=== PATIENT | female | born 1995 | race Two or more races ===

== ENCOUNTER 2024-06-08 09:26 | Outpatient (CLI) | payer MEDICAID, SELFPAY ==
[2024-06-08 09:30] VITALS: BP 136/84; PULSE 81; RESP 16; RESP 99; TEMP 36.8; BMI 36.3
[2024-06-08 09:37] VITALS: BP 136/84; PULSE 81
[2024-06-08 09:53] VITALS: BP 128/79; PULSE 99
== END 2024-06-08 10:14 | disposition home or self-care (01) ==
LOC: S4S1 09:29 → S4SX 09:30
PROVIDERS: PCP Family Medicine; Referring Provider Student in an Organized Health Care Education/Training Program; Visit Provider Student in an Organized Health Care Education/Training Program
DX: O36.8130 Decreased fetal movements, third trimester, not applicable or unspecified (principal); Z3A.37 37 weeks gestation of pregnancy
CPT/HCPCS: 59025

== ENCOUNTER 2024-09-21 05:52 | Emergency (ER) | payer MEDICAID, SELFPAY ==
[2024-09-21 05:53] VITALS: BP 119/73; PULSE 117; RESP 20; TEMP 37.4; O2SAT 93; BMI 29.2
--- NOTE | 2024-09-21 06:18 | XR_ITS ---
Examination: PA lateral chest 2 views TECHNIQUE: Upright PA and lateral chest 2 views Date and time: September 21, 2024, 0633 hours INDICATIONS: Cough and shortness of breath beginning one week ago. FINDINGS: Pneumonia at the right base and right middle lobe Normal heart size The osseous structures are intact IMPRESSION: Pneumonia right base and right middle lobe
--- NOTE | 2024-09-21 06:20 | PD.EDURI ---
Upper Respiratory Inf. RME/HPI General Chief Complaint: Flu Like Symptoms Stated Complaint: FLU LIKE SYMPTOMS Time Seen by Provider: 09/21/24 06:14 Source: patient Arrival date/time: 09/21/24 05:52 28-year-old female with no known medical history presents to the emergency room with a chief complaint of coughing, congestion, intermittent fevers x 1 week Mode of arrival: ambulatory Limitations: no limitations Related Data Home Medications ?Medication ?Instructions ?Recorded ?Confirmed vitamin-ferrous sulfate 1 tab PO QDAY 06/08/24 06/08/24 27 mg iron-folic acid 0.8 mg tablet Previous Rx's ?Medication ?Instructions ?Recorded albuterol sulfate 90 mcg/actuation 2 puff inhalation Q6H PRN 09/21/24 aerosol inhaler (Ventolin HFA) shortness of breath or wheezing #6.7 grams amoxicillin 875 mg-potassium 1 tab PO BID 7 days #14 tabs 09/21/24 clavulanate 125 mg tablet benzonatate 100 mg capsule 100 mg PO BID PRN cough #14 caps 09/21/24 Allergies Allergy/AdvReac Type Severity Reaction Status Date / Time No Known Allergies Allergy Verified 09/21/24 05:54 Review of Systems Review of Systems Systems Reviewed: All systems reviewed, normal except as documented Constitutional Constitutional: Reports system reviewed and no additional complaints, except as documented, Denies fatigue, Denies fever(s), Denies headache(s) and Denies weakness Eyes Eyes: Reports system reviewed and no additional complaints, except as documented, Denies blurry vision and Denies change in vision ENT Ears, Nose, Mouth, and Throat: Reports system reviewed and no additional complaints, except as documented, Denies otalgia, Denies headache(s), Denies nasal congestion, Denies throat swelling and Denies vertigo Cardiovascular Cardiovascular: Reports system reviewed and no additional complaints, except as documented, Denies chest pain, Denies dyspnea and Denies dyspnea on exertion Respiratory Respiratory: Reports system reviewed and no additional complaints, except as documented, Reports chest congestion, Reports cough, Denies dyspnea, Denies dyspnea on exertion, Reports pain with cough and Reports wheezing Gastrointestinal Gastrointestinal: Reports system reviewed and no additional complaints, except as documented, Denies abdominal pain, Denies cramping, Denies nausea and Denies vomiting Genitourinary Genitourinary: Reports system reviewed and no additional complaints, except as documented Musculoskeletal Musculoskeletal: Reports system reviewed and no additional complaints, except as documented and Denies back pain Integumentary/Breasts Skin/Breast: Reports system reviewed and no additional complaints, except as documented and Denies wounds Neurologic Neurologic: Reports system reviewed and no additional complaints, except as documented, Denies confusion, Denies headache(s), Denies lack of coordination, Denies vertigo and Denies weakness Psychiatric Psychiatric: Reports system reviewed and no additional complaints, except as documented, Denies anxiety, Denies confusion, Denies depression, Denies paranoia, Denies suicidal ideation and Denies tactile hallucinations Endocrine Endocrine: Reports system reviewed and no additional complaints, except as documented and Denies fatigue Hematologic/Lymphatic Hematologic/Lymphatic: Reports system reviewed and no additional complaints, except as documented and Denies lymphadenopathy Allergic/Immunologic Allergic/Immunologic: Reports system reviewed and no additional complaints, except as documented, Denies throat swelling, Denies urticaria and Reports wheezing Past Medical History Social History SMOKING STATUS: Never smoker ED Exam General Limitations: Present no limitations General appearance: Present alert and in no apparent distress Head Head exam: Present atraumatic Eye Eye exam: Present normal appearance, PERRL and EOMI ENT ENT exam: Present normal exam, normal oropharynx and mucous membranes moist Neck Neck exam: Present normal inspection, full ROM and trachea midline Chest Chest inspection: Present normal inspection and symmetric chest wall rise Respiratory Respiratory exam: Present normal lung sounds bilaterally and wheezes; Absent respiratory distress, stridor, accessory muscle use or prolonged expiratory phase Expanded Respiratory Exam Location: Left: wheezes, Right: wheezes, Upper: wheezes and Lower: wheezes Cardiovascular Cardiovascular exam: Present regular rate, normal rhythm and normal heart sounds Abdominal Exam Abdominal exam: Present soft and normal bowel sounds Extremities Exam Extremities exam: Present normal inspection and full ROM Back Exam Back exam: Present normal inspection and full ROM Neurological Exam Neurological exam: Present alert, oriented X3 and CN II-XII intact Psychiatric Psychiatric exam: Present normal affect and normal mood Skin Skin exam: Present warm, dry, intact and normal color Course Quality Measures none Orders Category Date Time Status Bedside COVID-19 Antigen Test NOW Care 09/21/24 06:18 Completed Bedside Influenza A&B Antigen Test NOW Care 09/21/24 06:18 Completed XR chest 2V Stat Exams 09/21/24 06:18 Completed Strep A Rapid Stat Lab 09/21/24 06:21 Completed Albuterol/Ipratr Rt Debbie [Duoneb Rt Debbie] Med 09/21/24 06:18 Discontinued 3 ml INH X1 ONE Dexamethasone Inj [Decadron Inj] Med 09/21/24 06:18 Discontinued 10 mg PO X1 ONE Vital Signs Vital signs: Vital Signs Temperature 99.3 F 09/21/24 05:53 Pulse Rate 117 H 09/21/24 05:53 Respiratory Rate 20 09/21/24 05:53 Blood Pressure 119/73 09/21/24 05:53 Pulse Oximetry (%) 93 L 09/21/24 05:53 Oxygen Delivery Method Room Air 09/21/24 05:53 O2 saturation 93% Upper Respiratory Infection MDM Narrative MDM Narrative:: 28-year-old female with no known medical history presents to the emergency room with a chief complaint of coughing, congestion, intermittent fevers x 1 week Patient is tachycardic and O2 saturation is 93 on room air Physical examination shows wheezing to the bilateral upper and lower lobes. The patient has a lot of coughing. A breathing treatment was completed and steroids were given with significant improvement of her symptoms. Chest x-ray Patient data External records reviewed:: [facility] previous records Clinical information provided by:: patient Social determinants that could affect healthcare access:: none Patient has the following chronic illnesses:: No chronic illness How is presenting disease/condition affected by chronic disease/condition?: no chronic disease Evaluation data The following diagnostics were reviewed and interpreted by me:: lab results and radiology exam(s) Lab and/or radiology exams considered but not ordered:: Labs radiology exams considered and ordered Interpretation Summary: Chest [id number]: Pneumonia at the right base and right middle lobe Normal heart size The osseous structures are intact IMPRESSION: Pneumonia right base and right middle lobe Medications / Prescriptions Medications or Prescriptions considered but not ordered:: Medication given Medication administrations:: Medication Administration History Discontinued Medications Albuterol/Ipratropium (Albuterol/Ipratropium (Duoneb) Rt Debbie 3 Ml Nebu) 3 ml INH X1 ONE Stop: 09/21/24 06:19 Last Admin: 09/21/24 06:47 Dose: 3 ml Documented By: RODOLFO Dexamethasone Sodium Phosphate (Dexamethasone Sod Phos Inj 10 Mg/Ml Vial) 10 mg PO X1 ONE Stop: 09/21/24 06:19 Last Admin: 09/21/24 06:39 Dose: 10 mg Documented By: Medication given Consultations Consultation(s) initiated? (list below): No Diagnosis Upper Respiratory Differential Diagnosis: upper respiratory infection, viral infection, bronchitis, influenza and other (Community-acquired pneumonia) Most likely diagnosis given after review of the tests above:: Community-acquired pneumonia Admission Indicated Admission indicated?: not indicated Admission Request Was there a request for admission?: No Disposition Plan Disposition Plan: Discharge Discharge Attestation Discharge Attestation: The patient and all family members were given an opportunity to ask questions and understood the discharge instructions. Discharge instructions specifically effects, indications for sooner follow up or return to the emergency department, and the expected course of current diagnosis. Patient condition: Stable Discharge Plan Plan Patient Disposition: HOME (Self Care) Prescriptions/Referrals Prescriptions/Med Rec: New benzonatate 100 mg capsule 100 mg PO BID PRN (Reason: cough) Qty: 14 0RF amoxicillin-pot clavulanate 875-125 mg tablet 1 tab PO BID 7 Days Qty: 14 0RF albuterol sulfate [Ventolin HFA] 90 mcg/actuation HFA aerosol inhaler 2 puff inhalation Q6H PRN (Reason: shortness of breath or wheezing) Qty: 6.7 0RF No Action 27 mg iron- 0.8 mg Tablet 1 tab PO QDAY Referrals: No Primary/Family,Physician [Primary Care Provider] - In 1 week Problem List Clinical Impression: Community acquired pneumonia Patient/Caregiver Discharge Instructions Education Materials: ED Pneumonia (Adult) Additional Instructions: Please follow-up with your primary care provider in the next 24 to 48 hours. Your chest x-ray showed community-acquired pneumonia. Antibiotics were sent to your pharmacy please pick them up and take them as indicated For any evidence of worsening signs or symptoms return to emergency room immediately Print Language: Kosovan Stand Alone Forms: [employer] Award Info., Patient Portal Info Letter PA/BOB Supervising Physician PA/BOB Supervising Physician: Dr. Dowd
[2024-09-21] MEDS: DEXAMETHASONE SOD PHOS INJ 10 MG/ML VIAL PO (06:39)
[2024-09-21] MEDS: ALBUTEROL/IPRATROPIUM (Duoneb) RT SOL 3 ML NEBU INH (06:47)
[2024-09-21 06:49] VITALS: PULSE 127; RESP 18; O2SAT 100
[2024-09-21 07:05] LABS: Strep A Rapid Negative (Negative)
[2024-09-21 07:32] VITALS: BP 117/75; PULSE 114; RESP 18; TEMP 37.5; O2SAT 95
== END 2024-09-21 07:42 | disposition home or self-care (01) ==
PROVIDERS: Nurse Practitioner Family; Emergency Provider Family Medicine
DX: J18.9 Pneumonia, unspecified organism (principal)
CPT/HCPCS: 71046; 87400; 87651; 87811; 94640; 99283; A9270; J1100

== ENCOUNTER 2025-02-03 16:26 | Emergency (ER) | payer MEDICAID, SELFPAY ==
--- NOTE | 2025-02-03 16:35 | EDNOTE_ITS ---
ED Allergic Reaction RME/HPI General Chief complaint: Allergic Reaction Stated complaint: ALLERGIC REACTION TO ROCEPHIN Time Seen by Provider: 02/03/25 16:30 Source: patient Arrival date/time: 02/03/25 16:26 29-year-old female with no known medical history presents to the emergency room with a chief complaint itchiness and hives after an allergic reaction to a shot of Rocephin that she had at her primary care provider's office Mode of arrival: ambulatory Limitations: no limitations Related Data Home Medications ?Medication ?Instructions ?Recorded ?Confirmed vitamin-ferrous sulfate 1 tab PO QDAY 5 06/08/24 27 mg iron-folic acid 0.8 mg tablet Previous Rx's ?Medication ?Instructions ?Recorded albuterol sulfate 90 mcg/actuation 2 puff inhalation Q 6H PRN 09/21/24 aerosol inhaler (Ventolin HFA) shortness of breath or wheezing #6.7 grams benzonatate 100 mg capsule 100 mg PO BID PRN cough #14 caps 09/21/24 Allergies Allergy/AdvReac Type Severity Reaction Status Date / Time ceftriaxone (From Rocephin) Allergy Intermediate ITCHING Verified 02/03/25 16:33 Review of Systems Review of Systems Systems Reviewed: All systems reviewed, normal except as documented Constitutional Constitutional: Reports system reviewed and no additional complaints, except as documented, Denies fatigue, Denies fever(s), Denies headache(s) and Denies weakness Eyes Eyes: Reports system reviewed and no additional complaints, except as documented, Denies blurry vision, Denies change in vision and Denies itchy eyes ENT Ears, Nose, Mouth, and Throat: Reports system reviewed and no additional complaints, except as documented, Denies otalgia, Denies headache(s), Denies lip swelling, Denies nasal congestion, Denies throat swelling, Denies tongue swelling and Denies vertigo Cardiovascular Cardiovascular: Reports system reviewed and no additional complaints, except as documented, Denies chest pain, Denies dyspnea and Denies dyspnea on exertion Respiratory Respiratory: Reports system reviewed and no additional complaints, except as documented, Denies chest congestion, Denies cough, Denies dyspnea, Denies dyspnea on exertion and Denies wheezing Gastrointestinal Gastrointestinal: Reports system reviewed and no additional complaints, except as documented, Denies abdominal pain, Denies cramping, Denies nausea and Denies vomiting Genitourinary Genitourinary: Reports system reviewed and no additional complaints, except as documented Musculoskeletal Musculoskeletal: Reports system reviewed and no additional complaints, except as documented and Denies back pain Integumentary/Breasts Skin/Breast: Reports system reviewed and no additional complaints, except as documented and Denies wounds Neurologic Neurologic: Reports system reviewed and no additional complaints, except as documented, Denies confusion, Denies headache(s), Denies lack of coordination, Denies vertigo and Denies weakness Psychiatric Psychiatric: Reports system reviewed and no additional complaints, except as documented, Denies anxiety, Denies confusion, Denies depression, Denies paranoia, Denies suicidal ideation and Denies tactile hallucinations Endocrine Endocrine: Reports system reviewed and no additional complaints, except as documented and Denies fatigue Hematologic/Lymphatic Hematologic/Lymphatic: Reports system reviewed and no additional complaints, except as documented and Denies lymphadenopathy Allergic/Immunologic Allergic/Immunologic: Reports system reviewed and no additional complaints, except as documented, Denies GI upset with certain foods, Denies itchy eyes, Denies lip swelling, Denies seasonal rhinorrhea, Denies throat swelling, Denies tongue swelling, Reports urticaria and Denies wheezing ED Exam General Limitations: Present no limitations General appearance: Present alert and in no apparent distress Head Head exam: Present atraumatic Eye Eye exam: Present normal appearance, PERRL and EOMI ENT ENT exam: Present normal exam, normal oropharynx and mucous membranes moist Neck Neck exam: Present normal inspection, full ROM and trachea midline Chest Chest inspection: Present normal inspection and symmetric chest wall rise Respiratory Respiratory exam: Present normal lung sounds bilaterally; Absent respiratory distress, wheezes, stridor, accessory muscle use or prolonged expiratory phase Cardiovascular Cardiovascular exam: Present regular rate, normal rhythm and normal heart sounds Abdominal Exam Abdominal exam: Present soft and normal bowel sounds Extremities Exam Extremities exam: Present normal inspection and full ROM Back Exam Back exam: Present normal inspection and full ROM Neurological Exam Neurological exam: Present alert, oriented X3 and CN II-XII intact Psychiatric Psychiatric exam: Present normal affect and normal mood Skin Skin exam: Present warm, dry, intact and normal color Course Quality Measures none Orders Category Date Time Status Dexamethasone Inj [Decadron Inj] Med 02/03/25 16:35 Discontinued 10 mg PO X1 ONE DiphenhydrAMINE [Benadryl] Med 02/03/25 16:35 Discontinued 25 mg PO X1 ONE Famotidine [Pepcid] Med 02/03/25 16:35 Discontinued 20 mg PO X1 ONE Vital Signs Vital signs: Vital Signs Temperature 98.7 F 02/03/25 16:36 Pulse Rate 98 02/03/25 16:36 Respiratory Rate 17 02/03/25 16:36 Blood Pressure 138/87 H 02/03/25 16:36 Pulse Oximetry (%) 100 02/03/25 16:36 Oxygen Delivery Method Room Air 02/03/25 16:36 Allergic Reaction MDM Narrative MDM Narrative:: 29-year-old female with no known medical history presents to the emergency room with a chief complaint itchiness and hives after an allergic reaction to a shot of Rocephin that she had at her primary care provider's office Patient is hemodynamically stable and in no apparent distress Physical examination shows clear bilateral lung sounds there is no wheezing stridor or any signs of any respiratory distress The patient denies any nausea any vomiting any abdominal pain any chest pain any palpitations. Antihistamines were given with significant improvement to the patient's symptoms during reevaluation Patient was discharged and educated to follow-up with primary care provider in the next 24 to 48 hours and return to the emergency room for any evidence of worsening signs or symptoms Patient data External records reviewed:: [facility] previous records Clinical information provided by:: patient Social determinants that could affect healthcare access:: none Patient has the following chronic illnesses:: No chronic illness How is presenting disease/condition affected by chronic disease/condition?: no chronic disease Evaluation data The following diagnostics were reviewed and interpreted by me:: lab results and radiology exam(s) Lab and/or radiology exams considered but not ordered:: Labs and radiology exams considered and ordered Interpretation Summary: N/A Medications / Prescriptions Medications or Prescriptions considered but not ordered:: Medication given Medication administrations:: Medication Administration History Discontinued Medications Dexamethasone Sodium Phosphate (Dexamethasone Sod Phos Inj 10 Mg/Ml Vial) 10 mg PO X1 ONE Stop: 02/03/25 16:36 Last Admin: 02/03/25 16:52 Dose: 10 mg Documented By: JUANITA Comments: MED GIVEN PO Diphenhydramine HCl (Diphenhydramine Elix 25 Mg/10 Ml [facility]) 25 mg PO X1 ONE Stop: 02/03/25 16:36 Last Admin: 02/03/25 16:52 Dose: 25 mg Documented By: JUANITA Famotidine (Famotidine 20 Mg Tablet) 20 mg PO X1 ONE Stop: 02/03/25 16:36 Last Admin: 02/03/25 16:52 Dose: 20 mg Documented By: JUANITA Medication given Consultations Consultation(s) initiated? (list below): No Diagnosis Differential Diagnosis allergic reaction: allergic reaction, angioedema, contact dermatitis and urticaria Most likely diagnosis given after review of the tests above:: Allergic reaction Admission Indicated Admission indicated?: not indicated Admission Request Was there a request for admission?: No Disposition Plan Disposition Plan: Discharge Discharge Attestation Discharge Attestation: The patient and all family members were given an opportunity to ask questions and understood the discharge instructions. Discharge instructions specifically effects, indications for sooner follow up or return to the emergency department, and the expected course of current diagnosis. Patient condition: Stable Discharge Plan Plan Patient Disposition: HOME (Self Care) Discharge Disposition comment: Stable Prescriptions/Referrals Prescriptions/Med Rec: No Action 27 mg iron- 0.8 mg Tablet 1 tab PO QDAY benzonatate 100 mg capsule 100 mg PO BID PRN (Reason: cough) Qty: 14 0RF albuterol sulfate [Ventolin HFA] 90 mcg/actuation HFA aerosol inhaler 2 puff inhalation Q6H PRN (Reason: shortness of breath or wheezing) Qty: 6.7 0RF Referrals: No Primary/Family,Physician [Primary Care Provider] - In 1 week Problem List Clinical Impression: Allergic reaction Patient/Caregiver Discharge Instructions Education Materials: ED Medicine Reaction: Allergic Additional Instructions: Please follow-up with your primary care provider next 24 to 48 hours For any evidence of worsening signs or symptoms return to the emergency room immediately Print Language: Vietnamese Stand Alone Forms: [employer] Award Info., Patient Portal Info Letter PA/DIETARY AIDE TEACHER Supervising Physician PA/DIETARY AIDE TEACHER Supervising Physician: Dr. Swanson
[2025-02-03 16:36] VITALS: BP 138/87; PULSE 98; RESP 17; TEMP 37.1; O2SAT 100; BMI 33.5
[2025-02-03] MEDS: DEXAMETHASONE SOD PHOS INJ 10 MG/ML VIAL PO (16:52)
[2025-02-03] MEDS: FAMOTIDINE 20 MG TABLET PO (16:52)
[2025-02-03] MEDS: DiphenhydrAMINE ELIX 25 MG/10 ML UDC PO (16:52)
== END 2025-02-03 18:30 | disposition home or self-care (01) ==
PROVIDERS: Emergency Provider Emergency Medicine
DX: T78.40XA Allergy, unspecified, initial encounter (principal)
CPT/HCPCS: 99283; J1100; A9270